=== PATIENT | female | born 2000 | race Caucasian/White ===

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

== ENCOUNTER 2021-10-09 17:08 | Inpatient (IN) | payer OTHER ==
[~2021-10-09] VITALS: Ht 162.6 cm; Wt 99.8 kg
[~2021-10-09 17:08] MED LIST: COLACE100 MG PO; IBUPROFEN800 MG PO; PERCOCET 10-321 EACH PO
[2021-10-09] MEDS ORDERED: FERROUS SULFAT325 M2 PO (18:26)
[2021-10-09 18:32] LABS: HEMOGLOBIN 9.4 gm/dl (12.3-15.3); RED BLOOD COUNT 3.45 M/UL (4.00-5.10); WHITE BLOOD COUNT 10.6 K/UL (4.5-11.0)
[2021-10-09 21:32] LABS: BUN/CREATININE RATIO 8 (0-10)
[2021-10-10] MEDS ORDERED: FERROUS SULFAT325 MG PO (19:50)
[2021-10-10] MEDS ORDERED: IBUPROFEN600 MG PO (19:50)
[2021-10-10] MEDS ORDERED: COLACE 100MG C100 MG PO (19:50)
[2021-10-11 02:00] LABS: HEMOGLOBIN 9.1 gm/dl (12.3-15.3)
== END 2021-10-12 15:03 | disposition home or self-care (01) | DRG 807 ==
LOC: GENOP 17:08 → OB 17:31
PROVIDERS: Obstetrics & Gynecology; ADMIT Obstetrics & Gynecology
PROC: 4A1HXCZ Monitoring of Products of Conception, Cardiac Rate, External Approach (ICD-10-PCS; 2021-10-09)
PROC: 0HQ9XZZ Repair Perineum Skin, External Approach (ICD-10-PCS; 2021-10-09)
PROC: 3E033VJ Introduction of Other Hormone into Peripheral Vein, Percutaneous Approach (ICD-10-PCS; 2021-10-09)
PROC: 10E0XZZ Delivery of Products of Conception, External Approach (ICD-10-PCS; principal; 2021-10-10)
DX: O13.4 Gestational [pregnancy-induced] hypertension without significant proteinuria, complicating childbirth (principal); Z37.0 Single live birth; Z3A.37 37 weeks gestation of pregnancy; O99.214 Obesity complicating childbirth; E66.9 Obesity, unspecified; Z20.822 Contact with and (suspected) exposure to COVID-19; O99.02 Anemia complicating childbirth; D50.9 Iron deficiency anemia, unspecified; F17.210 Nicotine dependence, cigarettes, uncomplicated; O99.334 Smoking (tobacco) complicating childbirth; O69.1XX0 Labor and delivery complicated by cord around neck, with compression, not applicable or unspecified; O70.0 First degree perineal laceration during delivery; Z82.49 Family history of ischemic heart disease and other diseases of the circulatory system
CPT/HCPCS: 80053; 81001; 83615; 84550; 85014; 85018; 85025; 86850; 86900; 86901; 90715; J2590; J7120; U0002